=== PATIENT | male | born 1970 | race Two or more races ===

== ENCOUNTER 2018-11-19 12:40 | Outpatient (CLI) | payer OTHER ==
[~2018-11-19 12:40] MED LIST: CEFADROXIL500 MG PO; JANUVIA100 MG PO; METFORMIN HCL500 MG PO; PERCOCET 5/3251 TAB PO
== END 2018-11-19 14:42 | disposition home or self-care (01) ==
LOC: RAD 12:40
DX: M54.5 Low back pain (principal); M54.31 Sciatica, right side

== ENCOUNTER → 2018-11-25 17:30 | Outpatient (CLI) | payer OTHER | END | disposition home or self-care (01) | LOC: RAD 17:30 | DX: M99.01 Segmental and somatic dysfunction of cervical region (principal) ==

== ENCOUNTER 2019-02-08 08:42 | Outpatient (CLI) | payer OTHER | END 2019-02-08 11:01 | disposition home or self-care (01) | LOC: SONOGRAMA 08:42 | DX: K76.0 Fatty (change of) liver, not elsewhere classified (principal); D18.00 Hemangioma unspecified site; E04.9 Nontoxic goiter, unspecified; R59.0 Localized enlarged lymph nodes ==

== ENCOUNTER → 2019-02-18 | Outpatient (CLI) | payer OTHER | END | disposition home or self-care (01) | LOC: MAMO-SONO 02-08 08:45 → RAD 12:00 | DX: K63.5 Polyp of colon (principal) ==

== ENCOUNTER 2019-06-17 08:53 | Outpatient (CLI) | payer OTHER | END 2019-06-17 08:59 | disposition home or self-care (01) | LOC: RAD 08:53 | DX: K59.00 Constipation, unspecified (principal) ==

== ENCOUNTER 2021-07-08 09:07 | Outpatient (CLI) | payer OTHER | END 2021-07-08 09:16 | disposition home or self-care (01) | LOC: SONOGRAMA 09:07 | PROVIDERS: ATTEND Internal Medicine Endocrinology, Diabetes & Metabolism | DX: Z71.89 Other specified counseling (principal); R94.6 Abnormal results of thyroid function studies; E11.65 Type 2 diabetes mellitus with hyperglycemia; E04.2 Nontoxic multinodular goiter; E63.9 Nutritional deficiency, unspecified; E78.00 Pure hypercholesterolemia, unspecified; E78.2 Mixed hyperlipidemia; E04.1 Nontoxic single thyroid nodule; D69.3 Immune thrombocytopenic purpura ==

== ENCOUNTER 2021-11-18 09:40 | Outpatient (CLI) | payer OTHER | END 2021-11-18 09:41 | disposition home or self-care (01) | LOC: SONOGRAMA 09:40 | PROVIDERS: ATTEND Internal Medicine Gastroenterology | DX: R10.10 Upper abdominal pain, unspecified (principal); K76.0 Fatty (change of) liver, not elsewhere classified; K62.5 Hemorrhage of anus and rectum; D18.03 Hemangioma of intra-abdominal structures; Z86.010 Personal history of colon polyps ==